=== PATIENT | female | born 1985 | race Caucasian/White ===

== ENCOUNTER 2022-02-16 09:58 | Emergency (ER) | payer MEDICAID ==
[~2022-02-16] VITALS: Ht 154.9 cm; Wt 61.0 kg
[2022-02-16 10:10] VITALS: BP 126/91
[2022-02-16] MEDS ORDERED: IBUP-2030 MT (11:47)
== END 2022-02-16 12:01 | disposition home or self-care (01) ==
LOC: ER 09:58
DX: R68.84 Jaw pain (principal)
CPT/HCPCS: 81025; 99282

== ENCOUNTER 2022-04-23 18:47 | Emergency (ER) | payer MEDICAID ==
[~2022-04-23] VITALS: Ht 152.4 cm; Wt 59.0 kg
[~2022-04-23 18:47] MED LIST: IBUP-2030 MT
[2022-04-23] MEDS ORDERED: ONDANSETRON 4MG ODT PO ONE (20:30)
[2022-04-23] MEDS ORDERED: MAGNESIUM/ALUMINUM HYDROXIDE/SIMETHICONE 30ML UDC PO ONE (20:30)
[2022-04-23] MEDS ORDERED: VISCOUS LIDOCAINE 2% 15 ML UDC MM ONE (20:30)
[2022-04-23] MEDS ORDERED: FOLIC ACID 1 MG, THIAMINE HCL 100 MG, MVI, ADULT NO.1 10 ML in DEXTROSE 5% WATER 1,000 ML IV ONE ×4 (20:45)
[2022-04-23 21:04] LABS: HEMATOCRIT. 47.4 % (36.0-48.0); MEAN CORPUSCULAR HEMOGLOBIN 32.4 pg (28.0-32.0); MEAN PLATELET VOLUME 8.3 fl (7.4-10.4); PLATELET 408 x1000/uL (130-400); RED BLOOD CELL COUNT 4.94 mill/uL (4.2-5.4)
[2022-04-23 21:10] LABS: CHLORIDE 100 mEq/L (98-107)
[2022-04-23 21:20] LABS: ETHANOL BLOOD < 10 mg/dL
[2022-04-23 21:59] LABS: PLATELET ESTIMATE SLIGHTLY INCREASED
[2022-04-24] MEDS ORDERED: VISCOUS LIDOCAINE 2% 15 ML UDC MM NR (00:15)
[2022-04-24] MEDS ORDERED: ONDANSETRON 4MG ODT PO NR (00:15)
[2022-04-24] MEDS ORDERED: MAGNESIUM/ALUMINUM HYDROXIDE/SIMETHICONE 30ML UDC PO NR (00:15)
[2022-04-24] MEDS ORDERED: FAMO40TA70 MT (00:46)
[2022-04-24] MEDS ORDERED: MAG355OR21 MT (00:46)
[2022-04-24 02:05] VITALS: BP 120/71
== END 2022-04-24 02:05 | disposition home or self-care (01) ==
LOC: ER 18:53
DX: K29.20 Alcoholic gastritis without bleeding (principal); F10.20 Alcohol dependence, uncomplicated; R00.0 Tachycardia, unspecified; Y90.0 Blood alcohol level of less than 20 mg/100 ml
CPT/HCPCS: 36415; 80053; 80320; 83690; 85025; 96365; 99284; J3411; J3490; J7070; Q0162; G0480